=== PATIENT | female | born 1970 ===

== ENCOUNTER 2017-05-20 12:18 | Emergency (ER) | payer MEDICAID, OTHER ==
[2017-05-20] MEDS ORDERED: Sodium Chloride 0.9% 10 ML Syringe FLUSH PRN (12:49)
--- NOTE | 2017-05-20 13:01 | EDM.PDOC ---
ED HPI GENERAL MEDICAL PROBLEM - General Chief Complaint: Chest Pain Stated Complaint: Chest pain Time Seen by Provider: 05/20/17 12:35 Source of Information: Reports: Patient, RN Notes Reviewed History Limitations: Reports: No Limitations - History of Present Illness INITIAL COMMENTS - FREE TEXT/NARRATIVE: 47 year old female presents to the ED today with complaints of sudden onset of sharp, substernal chest pain. The pain started while she was sitting at her desk. She describes the pain as intense and lasting about 15 minutes. She tried repositioning with no improvement. She got up and walked around which did not change the pain. The pain did not radiate. She describes a subtle pain in her jaw that lasted a few minutes. The pain resolved upon arrival to the ED. She now describes a subtle ache. She denies pleuritic chest pain, palpitations, dyspnea on exertion, cough, fever, chills, nausea, vomiting, abdominal pain, diarrhea. She denies unilateral or bilateral lower extremity edema, swelling or calf pain. No recent travel. No history of clotting disorders. She is not on any hormonal therapy. She has a family history of CAD. She denies personal cardiac history, htn, high cholesterol. She is a smoker and smokes approximately 6 cigarettes per day. Denies alcohol or drug use. She reports intermittent heart burn symptoms over the past few weeks which is abnormal for her. She says the pain today was different than her heart burn symptoms. She denies radiation of the pain today up into her throat. She reports eating eggs, ham, and cheese for breakfast around 930 am. Symptoms started around noon. She had two cups of coffee today. She still has her gallbladder. She reports an intolerance to dairy products with occasional "stomach upset". No history of gallstones. Chest Pain Score (Numeric/FACES): 0 - Related Data Allergies Allergy/AdvReac Type Severity Reaction Status Date / Time No Known Allergies Allergy Verified 05/20/17 12:23 Home Meds: Home Meds . [No Known Home Meds] 05/20/17 [History] Past Medical History - Past Health History Medical/Surgical History: Denies Medical/Surgical History Social & Family History - Tobacco Use Smoking Status *Q: Current Every Day Smoker Years of Tobacco use: 15 Packs/Tins Daily: 0.4 - Recreational Drug Use Recreational Drug Use: Yes Drug Use in Last 12 Months: No ED ROS GENERAL - Review of Systems Review Of Systems: See Below Constitutional: Reports: No Symptoms. Denies: Fever, Chills, Diaphoresis Respiratory: Reports: No Symptoms. Denies: Shortness of Breath, Pleuritic Chest Pain, Cough, Sputum Cardiovascular: Reports: Chest Pain. Denies: Blood Pressure Problem, Dyspnea on Exertion, Edema, Lightheadedness, Palpitations GI/Abdominal: Reports: No Symptoms. Denies: Abdominal Pain, Constipation, Diarrhea, Nausea, Vomiting ED EXAM, GENERAL - Physical Exam Exam: See Below Exam Limited By: No Limitations General Appearance: Alert, WD/WN, No Apparent Distress Respiratory/Chest: No Respiratory Distress, Lungs Clear, Normal Breath Sounds, No Accessory Muscle Use, Other (chest pain is reproducible with tenderness to sternal region with palpation ) Cardiovascular: Normal Peripheral Pulses, Regular Rate, Rhythm, No Edema, No Murmur GI/Abdominal: Normal Bowel Sounds, Soft, Non-Tender, No Distention, Other ( negative magana's sign. mild tenderness with palpation to epigastric region. No peritoneal inflammation signs. ) Extremities: Normal Inspection, Normal Range of Motion, Non-Tender. No: Fabiana' s Sign, Leg Pain, Increased Warmth, Redness Neurological: Alert, Oriented, Normal Cognition Psychiatric: Normal Affect, Normal Mood Skin Exam: Warm, Dry, Intact Course - Vital Signs Last Recorded V/S: Last Vital Signs Temp 99.4 F 05/20/17 12:23 Pulse 80 05/20/17 12:23 Resp 17 05/20/17 12:23 BP 154/96 H 05/20/17 12:23 Pulse Ox 100 05/20/17 12:23 - Orders/Labs/Meds Orders: Active Orders 24 hr Category Date Time Status Cardiac Monitoring [RC] . DIRECTED Care 05/20/17 12:49 Active EKG Documentation Completion [RC] ASDIRECTED Care 05/20/17 14:27 Active Peripheral IV Care [RC] . DIRECTED Care 05/20/17 12:50 Active Sodium Chloride 0.9% [Saline Flush] Med 05/20/17 12:49 Active 10 ml FLUSH ASDIRECTED PRN Peripheral IV Insertion Adult [OM.PC] Stat Oth 05/20/17 12:50 Ordered EKG 12 Lead [EK] Stat Ther 05/20/17 14:26 Ordered Medication Orders Sodium Chloride (Saline Flush) 10 ml FLUSH ASDIRECTED PRN PRN Reason: Keep Vein Open Last Admin: 05/20/17 13:14 Dose: 10 ml Labs: Laboratory Tests 05/20/17 05/20/17 05/20/17 Range/Units 13:10 13:10 13:20 WBC 12.00 H (3.98-10.04) K/mm3 RBC 3.87 L (3.98-5.22) M/mm3 Hgb 9.6 L (11.2-15.7) gm/L Hct 31.4 L (34.1-44.9) % MCV 81.1 (79.4-94.8) fl MCH 24.8 L (25.6-32.2) pg MCHC 30.6 L (32.2-35.5) g/dl RDW Std Deviation 55.1 H (36.4-46.3) fL Plt Count 523 H (182-369) K/mm3 MPV 9.0 L (9.4-12.3) fl Neut % (Auto) 69.6 (34.0-71.1) % Lymph % (Auto) 20.0 (19.3-51.7) % [place] % (Auto) 6.4 (4.7-12.5) % Eos % (Auto) 3.6 (0.7-5.8) Baso % (Auto) 0.3 (0.1-1.2) % Neut # (Auto) 8.35 H (1.56-6.13) K/mm3 Lymph # (Auto) 2.40 (1.18-3.74) K/mm3 [place] # (Auto) 0.77 H (0.24-0.36) K/mm3 Eos # (Auto) 0.43 H (0.04-0.36) K/mm3 Baso # (Auto) 0.04 (0.01-0.08) K/mm3 Sodium 141 (136-145) mEq/L Potassium 4.2 (3.5-5.1) mEq/L Chloride 105 (98-107) mEq/L Carbon Dioxide 26 (21-32) mEq/L Anion Gap 14.2 (5-15) BUN 13 (7-18) mg/dL Creatinine 1.0 (0.55-1.02) mg/dL Est Cr Clr Drug Dosing 69.09 mL/min Estimated GFR (MDRD) 60 (>60) mL/min BUN/Creatinine Ratio 13.0 L (14-18) Glucose 87 (74-106) mg/dL Calcium 9.0 (8.5-10.1) mg/dL Total Bilirubin 0.2 (0.2-1.0) mg/dL AST 15 (15-37) U/L ALT 18 (14-59) U/L Alkaline Phosphatase 70 (46-116) U/L Troponin I < 0.017 (0.00-0.056) ng/mL Total Protein 7.3 (6.4-8.2) g/dl Albumin 3.3 L (3.4-5.0) g/dl Globulin 4.0 gm/dL Albumin/Globulin Ratio 0.8 L (1-2) Urine HCG, Qual Negative (NEGATIVE) Meds: Medications Generic Name Dose Route Start Last Admin Trade Name Freq PRN Reason Stop Dose Admin Sodium Chloride 10 ml 05/20/17 12:49 05/20/17 13:14 Saline Flush FLUSH 10 ml ASDIRECTED PRN Administration Keep Vein Open - Re-Assessments/Exams Free Text/Narrative Re-Assessment/Exam: CBC reveals mildly elevated WBC 12,000. H&H is low, 9.6 and 31. MCH is low. Patient does admit to a history of iron deficiency anemia but is not currently taking any iron. She also reports heavy periods. Platelets are elevated at 523. CMP is normal. Troponin is WNL. Hcg is negative. The patient's pain is reproducible with palpation. She's had no pain throughout her stay. Symptoms resolved COPER HAND. Discussed history, exam and labs were Dr. Ortiz. The likelihood of this being cardiac is low. Her vitals have remained stable. Plan will be to discharge her home with close f/u in the clinic. She is agreeable to this. She was thoroughly educated on return precautions. She understands that further outpatient workup may be needed for her labs and chest pain complaint. She was instructed to start Prilosec for heart burn symptoms. Discharge instructions as documented. Departure - Departure Time of Disposition: 14:30 Disposition: Home, Self-Care 01 Condition: Good Clinical Impression: Chest pain of uncertain etiology, Elevated platelet count Anemia Qualifiers: Anemia type: unspecified type Qualified Code(s): D64.9 - Anemia, unspecified Instructions: Anemia, Nonspecific, Nonspecific Chest Pain, [id number] Referrals: PCP,None [Primary Care Provider] - Forms: ED Department Discharge Additional Instructions: Follow-up in the clinic next week to establish care and for a follow-up visit regarding your elevated platelets and low hemoglobin. Call [phone] to schedule. Recommend Lupe Dinius PAC. Return to ER with new, worsening, or persistent symptoms. Start Prilosec 20mg twice a day for two weeks - My Orders Last 24 Hours: My Active Orders 05/20/17 12:49 Cardiac Monitoring [RC] . DIRECTED Sodium Chloride 0.9% [Saline Flush] 10 ml FLUSH ASDIRECTED PRN 05/20/17 12:50 Peripheral IV Care [RC] . DIRECTED Peripheral IV Insertion Adult [OM.PC] Stat 05/20/17 14:26 EKG 12 Lead [EK] Stat 05/20/17 14:27 EKG Documentation Completion [RC] ASDIRECTED - Assessment/Plan Last 24 Hours: My Active Orders 05/20/17 12:49 Cardiac Monitoring [RC] . DIRECTED Sodium Chloride 0.9% [Saline Flush] 10 ml FLUSH ASDIRECTED PRN 05/20/17 12:50 Peripheral IV Care [RC] . DIRECTED Peripheral IV Insertion Adult [OM.PC] Stat 05/20/17 14:26 EKG 12 Lead [EK] Stat 05/20/17 14:27 EKG Documentation Completion [RC] ASDIRECTED
--- NOTE | 2017-05-20 14:10 | CR ---
Chest: Portable view of the chest was obtained. Comparison: No prior study. Heart size and mediastinum are normal. Lungs are clear. Bony structures are grossly intact. Impression: 1. Nothing acute is seen on portable chest x-ray. Diagnostic code #1
== END 2017-05-20 15:03 | disposition home or self-care (01) ==
LOC: JD.ED 12:18
DX: R07.2 Precordial pain (principal); D64.9 Anemia, unspecified; R79.89 Other specified abnormal findings of blood chemistry; F17.210 Nicotine dependence, cigarettes, uncomplicated
CPT/HCPCS: 36415; 71010; 80053; 81025; 84484; 85025; 93005; 99285; J7050; 93010; 99284-25